=== PATIENT | male | born 1960 | race Caucasian/White ===

== ENCOUNTER 2018-06-20 16:20 | Emergency (ER) | payer BC, OTHER ==
[2018-06-20] MEDS ORDERED: DIPHTH,PERTUSS(ACELL),TET 0.5 ML DISP.SYRIN IM ONE ×2 (16:43→17:38)
--- NOTE | 2018-06-20 16:48 | PDOC ---
Documentation entered by Dioni Rincon SCRIBE, acting as scribe for Teri Chau MD. Teri Chau MD: This documentation has been prepared by the Sergey adiar Daniel, SCRIBE, under my direction and personally reviewed by me in its entirety. I confirm that the documentation accurately reflects all work, treatment, procedures, and medical decision making performed by me. History of Present Illness - General Chief Complaint: Laceration Stated Complaint: LEFT THIGH LACERATION Time Seen by Provider: 06/20/18 16:23 History Source: Patient, Spouse Exam Limitations: No Limitations - History of Present Illness Initial Comments: 06/20/18 17:07 The patient is a 58 year old male with no past medical history here today for evaluation of a left thigh laceration. 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 He reports that there was mild bleeding and has mild pain currently. able to walk. last tdap in 2003 Patient denies headache, lightheadedness. Denies fever, chills. Denies chest pain, shortness of breath. Denies nausea, vomiting, diarrhea, abdominal pain. Allergies: NKA Social history: Denies illicit drug and tobacco use. Confirms social drinking. Surgical history: none PCP: William Christopher 06/20/18 17:38 06/20/18 17:38 Past History - Past Medical History Allergies/Adverse Reactions: Allergies Allergy/AdvReac Type Severity Reaction Status Date / Time No Known Allergies Allergy Verified 06/20/18 16:22 Home Medications: Ambulatory Orders NK [No Known Home Medication] 06/20/18 Review of Systems - Review of Systems Able to Perform ROS?: Yes Comments:: 06/20/18 17:07 Constitutional: no fevers or chills. HEENT: no headache or dizziness. No congestion. No visual/hearing disturbances. CVS: no cp or syncope. Resp: no sob. No cough. Gastrointestinal: no abdominal pain, nausea or vomiting. Genitourinary: no urinary sx, hematuria. MUSCULOSKELETAL: No joint pain and swelling. No neck or back pain. SKIN: +laceration to left inner thigh. no redness or skin changes, no discharge , no rash. Hematologic: no easy bruising/bleeding. NEUROLOGIC: No headache, dizziness, LOC or altered mental status. No weakness, numbness or tingling. Psych: no anxiety or depression Allergic/Immunologic: no allergies All other systems reviewed and negative, or as documented in HPI. *Physical Exam - Physical Exam Comments: 06/20/18 17:08 General: NAD, well appearing Vascular: 2+ radialis pulses symmetric and equal. Neuro: prox and distal LE 5/5 strength, FROM at hip/knee and ankle, ambulatory. normal sensation, SILT L1-S1 MSK: soft compartments, Cap refill <2 sec. 2+ radialis pulses bilaterally and symmetric.no joint tenderness. FROM. Skin: color normal color, warm and well perfused. 1.5 CM subcutaneous linear laceration to left inner thigh nonbleeding, nontender. 06/20/18 17:38 Procedures - Laceration/Wound Repair Left Medial Leg Wound Length: to 2.5 cm Wound Explored: clean Wound's Depth, Shape: linear Irrigated w/ Saline: Yes Betadine Prep: Yes Anesthesia: 1% Lidocaine Amount of Anesthetic (ccs): 2 Wound Debrided: minimal Wound Repaired With: Sutures Suture Size/Type: 5:0 Number of Sutures: 3 Layer Closure: No Sterile Dressing Applied: Yes Splint Applied: No Progress: 06/20/18 16:46 Medical Decision Making - Medical Decision Making 06/20/18 16:47 Laceration repair to left medial thigh Area prepped and draped in sterile fashion. Anesthetized with lidocaine. Irrigated with copious irrigation and explored for foreign body. Sutured with 3 Nylon 5-0 sutures with adequate approximation of wound edges. The wound was then covered with bacitracin and sterile gauze. Instructions given to return in 10 days for suture removal in the ED or with their primary care doctor. 06/20/18 17:40 *DC/Admit/Observation/Transfer Diagnosis at time of Disposition: Laceration of thigh without complication Qualifiers: Encounter type: initial encounter Laterality: left Qualified Code(s): S71.112A - Laceration without foreign body, left thigh, initial encounter - Discharge Dispostion Disposition: HOME Condition at time of disposition: Stable Decision to Admit order: No - Referrals Referrals: William Christopher MD [Primary Care Provider] - - Patient Instructions Printed Discharge Instructions: DI for Laceration Repair Additional Instructions: Wound dressed with topical Bacitracin and sterile gauze. Follow up with your primary care doctor within 48-72 hours for a wound check. Keep sutures covered and dry for 24 hours then clean with soap and water daily - do not scrub. Apply bacitracin or neosporin twice a day with warm soaks and cover with gauze/ dressings. Return to ED for suture removal 10 days. Return to the ED for any worsening pain, redness, streaking (red lines), swelling, fever or chills. Keep the wound clean and as dry as possible. Do not immerse or soak the wound in water. This means no swimming, washing dishes (unless thick rubber gloves are used), baths, or hot tubs until the stitches are removed or after about two weeks if absorbable suture material was used. Leave original bandages on the wound for the first 24 hours. After this time, showering or rinsing is recommended, rather than bathing. the first day, remove old bandages and gently cleanse the wound with soap and water. Cleansing twice a day prevents buildup of debris and will result in easier suture removal. - Post Discharge Activity
[2018-06-20 17:23] VITALS: BP 132/86; PULSE 86; TEMP 97.9; BMI 28.5
== END 2018-06-20 17:45 | disposition home or self-care (01) ==
LOC: FER 16:20
PROC: 0HQJXZZ Repair Left Upper Leg Skin, External Approach (ICD-10-PCS; principal; 2018-06-20)
PROC: 3E0234Z Introduction of Serum, Toxoid and Vaccine into Muscle, Percutaneous Approach (ICD-10-PCS; 2018-06-20)
DX: S71.112A Laceration without foreign body, left thigh, initial encounter (principal); W26.0XXA Contact with knife, initial encounter; Y93.89 Activity, other specified; Y92.89 Other specified places as the place of occurrence of the external cause; Y99.0 Civilian activity done for income or pay
CPT/HCPCS: 90715; 99282-25

== ENCOUNTER 2018-06-30 07:53 | Emergency (ER) | payer BC, OTHER ==
--- NOTE | 2018-06-30 07:53 | PDOC ---
Suture Removal/Wound Check HPI - History of Present Illness Chief Complaint: Suture/Staple Removal(Here) Stated Complaint: SUTURE REMOVAL Time Seen by Provider: 06/30/18 07:53 History Source: Yes: Patient Exam Limitations: Yes: No Limitations - Onset of Previous Treatment Comment:: 06/30/18 07:56 58 YOM with no medical history Presenting to the ED with suture removal. s/p injury to left inner thigh on 06/20/18 with placement of 3 sutures. +developing area of erythema around the sutures, there was small opening in the past week that drained and healed with granulation. No fever or chills, pain, swelling or discharge/malodor. Keeping the wound clean once a day. he has remained active tdap updated at that time. 06/30/18 08:06 Past History - Past Medical History Allergies/Adverse Reactions: Allergies Allergy/AdvReac Type Severity Reaction Status Date / Time No Known Allergies Allergy Verified 06/30/18 07:53 Home Medications: Ambulatory Orders Cephalexin Monohydrate [Keflex -] 500 mg PO Q8H 5 Days #15 capsule 06/30/18 COPD: No - Suicide/Smoking/Psychosocial Hx Smoking History: Never smoked Hx Alcohol Use: ("NIGHTLY") *Review of Systems - Review of Systems Able to Perform ROS?: Yes Comments:: 06/30/18 07:57 Constitutional: no fevers or chills. MUSCULOSKELETAL: No joint pain and swelling. No neck or back pain. SKIN: +laceration to left inner thigh well healed. no redness or skin changes, no discharge, no rash. Hematologic: no easy bruising/bleeding. NEUROLOGIC: No weakness, numbness or tingling. *Physical Exam - Physical Exam Comments: 06/30/18 07:58 General: NAD, well appearing Vascular: 2+ radialis pulses symmetric and equal. Neuro: prox and distal LE 5/5 strength, FROM at hip/knee and ankle, ambulatory. normal sensation, SILT L1-S1 MSK: soft compartments, Cap refill <2 sec. 2+ radialis pulses bilaterally and symmetric.no joint tenderness. FROM. Skin: color normal color, warm and well perfused. 1.5 CM subcutaneous healed laceration to left inner thigh with [address], no active drainage. no dehiscence. +surrounding erythema and firmness nonbleeding, nontender. no fluctuance Medical Decision Making - Medical Decision Making 06/30/18 08:13 VS wnl. Verbal consent was obtained. Wound well approximated, no erythema, induration, or discharge noted. 3 sutures completely removed in a sterile fashion. Patient tolerated procedure well, no complications. Patient advised to look for and return for any signs of infection such as redness, swelling, discharge, or worsening pain. instructions on proper wound care, topical bacitracin and bandaid applied. keflex tid x 5 d for mild cellulitis around wound, no e/o dehiscence or active drainage/abscess or systemic sx. *DC/Admit/Observation/Transfer Diagnosis at time of Disposition: Encounter for removal of sutures, Cellulitis - Discharge Dispostion Disposition: HOME Condition at time of disposition: Stable Decision to Admit order: No - Prescriptions Prescriptions: Cephalexin Monohydrate [Keflex -] 500 mg PO Q8H 5 Days #15 capsule - Referrals Referrals: William Christopher MD [Staff Physician] - - Patient Instructions Printed Discharge Instructions: DI for Cellulitis -- Adult, DI for Suture Removal Additional Instructions: AFTER the stitches are removed: Clean your wound as directed. Carefully wash your wound with soap and water. Pat the area dry with a clean towel. Protect your wound. Your wound can swell, bleed, or split open if it is stretched or bumped. You may need to wear a bandage that supports your wound until it is completely healed. Minimize your scar. Use sunblock if your wound is exposed to the sun. Apply it every day after the stitches are removed. This will help prevent skin discoloration. Please follow up with your Primary Care Doctor within 48-72 hours - call for an appointment. Rest and elevate affected area. Take Motrin 600mg every 8 hours with food for pain and or tylenol 650-1000mg every 6 hours as needed for pain. Please take Antibiotics as directed, keflex three times a day x 5 days If you experience any worsening redness, swelling, streaking (red lines), fever or chills please return to ED - Post Discharge Activity
[2018-06-30 07:56] VITALS: BP 129/86; PULSE 66; TEMP 98.7; BMI 28.3
[2018-06-30] MEDS ORDERED: CEPHALEXIN MONOHYDRATE 500 MG CAPSULE (UD) PO ONE (08:07)
[2018-06-30] MEDS ORDERED: CEPHALEXIN MONOHYDRATE 500 MG CAPSULE (UD) ONE (08:17)
== END 2018-06-30 08:22 | disposition home or self-care (01) ==
LOC: FER 07:53
DX: Z48.02 Encounter for removal of sutures (principal)
CPT/HCPCS: 99281-25

== ENCOUNTER 2023-07-21 04:22 | Day surgery (SDC) | payer BC, OTHER ==
[2023-07-15 13:18] VITALS: BMI 26.8
[2023-07-21 08:32] VITALS: TEMP 97.9
[2023-07-21 08:42] VITALS: PULSE 58
[2023-07-21 12:13] VITALS: BP 121/76; RESP 18
== END 2023-07-21 09:15 | disposition home or self-care (01) ==
LOC: JASU-ENDO 04:22
PROVIDERS: ATTEND Internal Medicine Gastroenterology
PROC: 0DJD8ZZ Inspection of Lower Intestinal Tract, Via Natural or Artificial Opening Endoscopic (ICD-10-PCS; principal; 2023-07-21 08:00)
DX: Z12.11 Encounter for screening for malignant neoplasm of colon (principal); K64.8 Other hemorrhoids